=== PATIENT | female | born 1965 | race Caucasian/White ===

== ENCOUNTER 2017-09-27 09:41 | Emergency (ER) | payer OTHER ==
[2017-09-27 10:07] VITALS: BP 131/80; PULSE 84; RESP 16; TEMP 98.1; O2SAT 96
[2017-09-27] MEDS ORDERED: AMOXICILLIN/CLAVULANATE POT 875/125 MG TAB PO ONE (10:10)
--- NOTE | 2017-09-27 10:19 | EDPHY ---
H & P Time Seen by Provider: 09/27/17 09:49 HPI/ROS: HPI Concerned about foot infection. 52-year-old female by private vehicle. This patient had bunion surgery on her right foot, specifically the lateral metatarsal phalangeal joint area of the distal right foot. She had this surgery done by a city designer in July. She reports that she has had pain involving the ventral aspect of the MTP joints, 4. And 5. She followed up with her city designer on August 25 and was re- evaluated at that time. She was told was no evidence of infection. She reports that since that time she has had worsening pain to this area. She reports that last night she had some redness and swelling involving the right 5th toe and 5th metatarsophalangeal joint area. She reports that the pain has persisted and the area is very sensitive to touch. She is concerned about infection. She has a follow-up appointment with her city designer on Friday to be re-evaluated. No history of trauma. She has not had a fever. ROS: Constitutional: No fever, no chills. No weakness. Musculoskeletal: As above. Skin: No rashes. As above. Neurological: No focal weakness or altered sensation. Past medical history: As above. She otherwise denies any significant past medical history. No allergies to penicillins or other antibiotics. Social history: Here by herself. Nonsmoker. Physical Exam: General Appearance: Alert, no distress. This patient is responding to questions appropriately and in full sentences. This patient appears well- hydrated and well-nourished. Eyes: Pupils equal and round no pallor or injection. No lid edema, erythema or injection. Right foot exam: She has got a superficial abrasion over the lateral aspect of the 5th metatarsophalangeal joint. There is no associated erythema or significant swelling. No warmth on touch and comparison to her left foot. There is no significant edema involving the right foot and no asymmetry in comparison to the left foot. She does have tenderness on palpation to this area. The right foot is otherwise neurovascularly intact. Neurological: Motor sensory function is grossly intact. Cranial nerves are normal. Gait is normal. Skin: Warm and dry, no rashes. Extremities are symmetrical. All joints range without pain or impingement. Psychiatric: No agitation. No depression. Database: EKG: Imaging: Procedures: Emergency department course: Vital signs reviewed and are normal. She is afebrile. Her presentation is not consistent with a cellulitis or postsurgical infection. Her presentation is also not consistent with gouty arthritis follow this is a possibility. She is very concerned about the development of an infection and was told by her city designer apparently over the phone to come to the emergency department to be evaluated and to be started on an antibiotic. I explained to her that at this time I felt that there was not a clear indication to start her on antibiotics however after further discussion I agreed to start her on Augmentin in the emergency department. She will then see her city designer on Friday as scheduled to be re-evaluated. The antibiotic can then either be discontinued or continued based on her exam and evaluation by her city designer. She is in agreement with this plan. Return to emergency department precautions were reviewed with her. She was given 875 mg of Augmentin in the emergency department. I discussed ibuprofen dosing for pain medication. She does not want anything stronger. Return to emergency department precautions were thoroughly reviewed. All of her questions were answered. She was discharged in good condition. Differential Diagnosis: The differential diagnosis on this patient includes but is not limited to postsurgical soft tissue infection of the right foot, gouty arthritis, pseudo arthritis, osteoarthritis, cellulitis, inflammatory nerve pain. This represents a partial list of diagnoses considered. These considerations are based on history, physical exam, past history, reassessment and diagnostic testing. Smoking Status: Never smoked Constitutional: Initial Vital Signs Temperature (C) 36.7 C 09/27/17 09:57 Heart Rate 84 09/27/17 09:57 Respiratory Rate 16 09/27/17 09:57 Blood Pressure 131/80 H 09/27/17 09:57 O2 Sat (%) 96 09/27/17 09:57 O2 Delivery Mode Room Air Allergies/Adverse Reactions: oxycodone Allergy (Verified 09/27/17 10:18) Hives valacyclovir [From Valtrex] Allergy (Verified 09/27/17 10:19) Other-Enter Comments Home Medications: Medication Instructions Recorded Amitriptyline HCl 09/27/17 Amoxicillin/Clavulanate Pot 875 mg PO BID 7 Days tab 09/27/17 [Augmentin 875 mg tab] Estogen Patch 09/27/17 Norethindrone Acetate 09/27/17 Medical Decision Making - Data Points Medications Given: Discontinued Medications Amoxicillin/Clavulanate Potassium (Augmentin 875mg) 875 mg PO EDNOW ONE PRN Reason: Protocol Stop: 09/27/17 10:11 Last Admin: 09/27/17 10:24 Dose: 875 mg Departure - Departure Disposition: Home, Routine, Self-Care Clinical Impression: Right foot pain, Status post right foot surgery Condition: Good Instructions: Metatarsalgia (DC) Additional Instructions: Read and follow provided instructions. Follow-up with your primary care physician or city designer as scheduled on Friday for re-evaluation and further management. Take antibiotic as prescribed unless otherwise discontinued or changed by her primary care physician or city designer. Discuss probiotics to take with antibiotic with pharmacist as reviewed here in the emergency department. Ibuprofen dosin mg every 6 hours with meals for the next 3 days only. Take only as needed for pain. Return to the emergency department immediately for redness or swelling of the right foot or toes, fever, uncontrolled pain or other serious concerns. Referrals: NONE *PRIMARY CARE P,. [Primary Care Provider] - As per Instructions Prescriptions: Amoxicillin/Clavulanate Pot [Augmentin 875 mg tab] 875 mg PO BID 7 Days tab
== END 2017-09-27 10:35 | disposition home or self-care (01) ==
LOC: CED 09:41
DX: G89.18 Other acute postprocedural pain (principal); Z98.890 Other specified postprocedural states